=== PATIENT | male | born 2000 | race African-American/Black ===

== ENCOUNTER 2023-03-03 07:45 | Outpatient (OUT) | payer BC, SELFPAY ==
--- NOTE | 2023-03-03 08:02 | XR_ITS ---
The [address] [address] Patient Name: FRANK DAVIS MRN: [id number] date: 2000 Sex: M Assigned Patient Location: RAD Current Patient Location: [facility] Accession/Order Number: [id number] Exam Date: 03/03/2023 08:15 Report Date: 03/03/2023 10:18 At the request of: FLACA CAMPOS Procedure: XR knee LT 4V EXAM: XR knee LT 4V HISTORY: Acute Pain Of Left Knee M25.562 COMPARISON: None. TECHNIQUE: 4 views FINDINGS: No acute fracture or dislocation. No significant degenerative changes. Unremarkable soft tissues. XR/XR knee LT 4V IMPRESSION: Unremarkable exam. Electronically authenticated by: CHRISTOPHER CLIFFORD Date: 03/03/2023 10:18
== END 2023-03-03 07:46 | disposition home or self-care (01) ==
PROVIDERS: Visit Provider Orthopaedic Surgery
DX: M25.562 Pain in left knee (principal)
CPT/HCPCS: 73564